=== PATIENT | female | born 1935 | race Caucasian/White ===

== ENCOUNTER → 2017-12-15 | Outpatient (CLI) | payer MEDICARE ==
--- NOTE | 2017-12-15 16:54 | US ---
Exam: Bilateral lower extremity arterial Doppler sonogram CLINICAL HISTORY: Peripheral vascular disease TECHNIQUE: Doppler sonographic evaluation of the bilateral lower extremities was performed. FINDINGS: Right Submitted sonographic images reveal calcified plaque in the right common femoral artery and in the proximal superficial femoral artery. Calcified plaque of moderate degree is seen throughout the length of the superficial femoral artery as well as in the popliteal artery. Positive arterial flow below the right knee. The following peak systolic flow flow velocity measurements were obtained: Common femoral artery velocity equals 80 centimeters per second , triphasic. Superficial femoral artery velocity equals 83-176 centimeters per second , triphasic proximally, biphasic in the mid right superficial femoral artery and monophasic distally. Highest velocity is in the proximal to mid superficial femoral artery is consistent with significant stenosis. Popliteal artery velocity equals 94 centimeters per second , triphasic. Peroneal artery velocity equals 22 centimeters per second , monophasic. Posterior tibial artery velocity equals 91 centimeters per second , monophasic. Dorsalis pedis artery velocity equals 9.3 centimeters per second , monophasic. Left Submitted sonographic images reveal arteriosclerotic plaque in the left common femoral artery and left superficial femoral artery with positive flow in the proximal left profunda femoral artery. Elevated flow velocity in the mid superficial femoral artery is consistent with moderate stenosis. There is positive color flow in the left popliteal artery with positive plaque. Positive flow is seen in the arteries below the left knee. The following peak systolic flow flow velocity measurements were obtained: Common femoral artery velocity equals 111 centimeters per second , biphasic. Superficial femoral artery velocity equals 102-134 centimeters per second , biphasic. Highest velocity in the mid left superficial femoral artery is consistent with moderate stenosis. Popliteal artery velocity equals 96 centimeters per second , biphasic. Peroneal artery velocity equals 60 centimeters per second , biphasic. Posterior tibial artery velocity equals 63 centimeters per second , monophasic. Dorsalis pedis artery velocity equals 10.9 centimeters per second , monophasic. 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 Monophasic flow in the right peroneal artery, bilateral posterior tibial arteries and bilateral dorsalis pedis arteries. Electronically signed by: Lee Montalvo MD 12/15/2017 4:52 PM CDT
--- NOTE | 2017-12-15 16:58 | US ---
EXAM DESCRIPTION: Carotid Duplex CLINICAL HISTORY: CAROTID BRUIT COMPARISON: None Available. TECHNIQUE: Carotid Doppler ultrasound FINDINGS: Right Submitted images show soft plaque in the common carotid, internal carotid or external carotid arteries. Calcified plaque in the upper right CCA and right carotid bulb. Axial images through the bulb show 62% luminal area narrowing. Axial images through the proximal right ICA above the bulb shows 69% luminal area narrowing. The following flow velocities were obtained: Common carotid artery peak systolic flow velocity measures 95 cm/s. Internal carotid artery peak systolic flow velocity measures 88 cm/s. The right internal carotid to common carotid peak systolic flow velocity ratio of 0.9 is normal. External carotid artery peak systolic flow velocity measures 77 cm/s. Flow in the right vertebral artery is antegrade. Left Submitted images show normal caliber of the left common carotid, internal carotid and external carotid arteries with no significant stenosis. Calcified plaque is seen at the left carotid bulb. The following flow velocities were obtained: Common carotid artery peak systolic flow velocity measures 83 cm/s. Internal carotid artery peak systolic flow velocity measures 66 cm/s. External carotid artery peak systolic flow velocity measures 70 cm/s. Flow in the left vertebral artery is antegrade. IMPRESSION: Transverse images suggest 62% area stenosis of the right carotid bulb and 69% area stenosis of the proximal right ICA. However the associated flow velocities are not significantly elevated. See above. No significant stenosis of the left common carotid or internal carotid artery. Antegrade flow in the vertebral arteries. Electronically signed by: Lee Montalvo MD 12/15/2017 4:56 PM CDT
--- NOTE | 2017-12-15 17:03 | US ---
EXAM DESCRIPTION: Soft Tissue,Head/Neck CLINICAL HISTORY: 82 years, Female, THYROID NODULE COMPARISON: Carotid Doppler sonogram December 15, 2017 FINDINGS: Thyroid ultrasound demonstrates a multinodular gland with underlying glandular parenchymal echogenicity within normal limits. No anterior cervical adenopathy. The right lobe measures 4.7 x 1.9 x 1.8 cm. The left lobe measures 4.6 x 1.6 x 1.7 cm. Right In the right thyroid lobe, a dominant nodule measures 2 x 1.6 x 1.5 cm slightly hypoechoic relative to the remainder the gland with a subtle peripheral hypoechoic halo. Fine-needle aspiration biopsy is recommended for a nodule of this size if not previously performed. Other smaller nodules in the right thyroid lobe are also present. In the inferior right lobe a small hypoechoic nodule measures 6 mm in greatest dimension. This can be followed. Color Doppler imaging shows positive color flow within the right thyroid nodule, slightly hypervascular compared to the adjacent thyroid parenchyma. The isthmus measures 3.4 mm in thickness. Left Inhomogeneous left thyroid lobe is seen. An ill-defined nodule in the lower left thyroid lobe measures 1.5 x 1.4 x 1.2 cm. There are questionable tiny internal calcifications. Fine-needle aspiration biopsy of this nodule is recommended if not previously performed. Other very small subtle nodules in left thyroid lobe are present. IMPRESSION: Dominant nodule in the right thyroid lobe measures 2 cm in greatest dimension. Further evaluation is recommended as discussed above. Largest nodule in the inferior left thyroid lobe is somewhat ill-defined but measures 1.5 cm in greatest dimension with question of tiny internal calcifications. Additional evaluation of this nodule is also recommended as discussed above. Electronically signed by: Lee Montalvo MD 12/15/2017 5:01 PM CDT
== END ==
LOC: US 09:22
PROVIDERS: ATTEND Family Medicine
DX: I65.23 Occlusion and stenosis of bilateral carotid arteries (principal); I73.9 Peripheral vascular disease, unspecified; E04.9 Nontoxic goiter, unspecified

== ENCOUNTER 2020-07-01 10:58 | Emergency (ER) | payer MEDICARE, OTHER ==
[2020-07-01 11:14] VITALS: TEMP 97.9
[2020-07-01] MEDS ORDERED: GLUCAGON INJ 1 MG VIAL IV ONE (11:15)
--- NOTE | 2020-07-01 11:17 | ED.PDOC ---
History of Present Illness - General Chief Complaint: Respiratory Problem Stated Complaint: SOB, chest pain Time Seen by Provider: 07/01/20 11:03 Source: patient, RN notes reviewed, Vital Signs reviewed Exam Limitations: no limitations - History of Present Illness Initial Comments: Patient is an 85-year-old female who presents the ED for 15-minute history of chest pain and feeling short of breath that began while eating a cinnamon roll. States she took a bite and feels at the cinamon roll got lodged in her chest and did not pass. She has been unable to swallow and has been spitting out all oral secretions. Denies fever, chills or any recent illnesses. Denies any cardiac history or any history of previous esophageal foreign bodies. Allergies/Adverse Reactions: Allergies Morphine Allergy (Verified 07/01/20 11:14) Review of Systems - Review of Systems Constitutional: Denies: chills, fever EENTM: States: other - Unable to swallow. Denies: ear pain, nose congestion Respiratory: States: short of breath. Denies: cough Cardiology: States: chest pain. Denies: edema, palpitations, syncope Gastrointestinal/Abdominal: Denies: abdominal pain, nausea Genitourinary: States: no symptoms reported Musculoskeletal: Denies: back pain, neck pain Skin: Denies: rash All other Systems: Reviewed and Negative Family Medical History - Family History Mother Family History: Unknown Physical Exam - Physical Exam General Appearance: Alert, Other - seated in bed spitting oral secretions into emesis bag Ears, Nose, Throat: other - No oropharyngeal erythema, edema or FB Neck: full range of motion, supple Respiratory: chest non-tender, lungs clear, normal breath sounds, no respiratory distress Cardiovascular/Chest: regular rate, rhythm, no edema Gastrointestinal/Abdominal: non tender, soft, no pulsatile mass Extremity: non-tender, normal inspection Neurologic: no motor/sensory deficits, alert, normal mood/affect Skin Exam: warm/dry Progress - Progress Progress: 07/01/20 11:20 Patient states she was eating a cinnamon roll and feels that it got stuck in her esophagus. She is unable to swallow oral secretions well water at this time. We will plan to give IV glucagon and observe in ED for passage of esophageal foreign body as well as rule out ACS, pneumonia, pneumothorax with labs and imaging. 07/01/20 12:20 Following Glucagon, patient felt esophageal foreign body has passed and all her symptoms resolved. She is drinking water without pain or difficulty. I have discussed with patient labs, imaging and vital signs and she is requesting to go home. I have discussed that she will need to follow-up with a GI doctor for endoscopy for further evaluation of possible stricture versus mass that could have caused her symptoms today. She will be on liquid/soft diet until seen by GI. She agrees with plan of care. - Results/Orders Results/Orders: CHEST XRAY XAM DESCRIPTION: Chest x-ray,1 View CLINICAL HISTORY: 85 years Female, chest pain COMPARISON: Previous study May 06, 2009 TECHNIQUE: AP portable chest. FINDINGS: Heart size is normal with normal pulmonary vascularity. No consolidating infiltrate. No pulmonary mass or worrisome nodule. No pneumothorax or pleural effusion. Bones are unremarkable. IMPRESSION: No acute process is identified in the chest. 07/01/20 11:14 IV:Start .ONCE 07/01/20 11:15 EKG .ONCE Laboratory Results - last 24 hr 07/01/20 07/01/20 07/01/20 11:10 11:10 11:10 WBC 8.7 RBC 4.98 Hgb 16.1 H Hct 45.2 MCV 90.7 MCH 32.2 H MCHC 35.5 RDW 12.2 Plt Count 304 MPV 8.4 Absolute Neuts (auto) 4.10 Absolute Lymphs (auto) 3.50 H Absolute Monos (auto) 0.70 Absolute Eos (auto) 0.30 Absolute Basos (auto) 0.10 Neutrophils % 47.0 Lymphocytes % 40.3 Monocytes % 7.7 Eosinophils % 3.4 Basophils % 1.6 Sodium 139 Potassium 3.7 Chloride 100 L Carbon Dioxide 27 Anion Gap 15.7 BUN 11 Creatinine 0.72 BUN/Creatinine Ratio 15.3 Random Glucose 194 H Serum Osmolality 282.2 Calcium 9.2 Total Bilirubin 0.8 AST 37 ALT 30 Alkaline Phosphatase 99 Troponin I < 0.02 B-Natriuretic Peptide 38.7 Serum Total Protein 8.0 Albumin 4.5 Globulin 3.5 Albumin/Globulin Ratio 1.3 Departure - Departure Clinical Impression: Atypical chest pain Esophageal foreign body Qualifiers: Encounter type: initial encounter Qualified Code(s): T18.108A - Unspecified foreign body in esophagus causing other injury, initial encounter Time of Disposition: 12:23 Disposition: Discharge to Home or Self Care Condition: Good Departure Forms: ED Discharge - Pt. Copy, Patient Portal Self Enrollment Activity: increase activity as tolerated Referrals: Sander Saldana MD [Primary Care Provider] - 1-2 Weeks Additional Instructions: You had a piece of food stuck in your esophagus causing your symptoms. you will need to stay on a soft diet until you can be seen by a GI doctor for further evaluation.
--- NOTE | 2020-07-01 11:32 | RAD ---
EXAM DESCRIPTION: Chest x-ray,1 View CLINICAL HISTORY: 85 years Female, chest pain COMPARISON: Previous study May 06, 2009 TECHNIQUE: AP portable chest. FINDINGS: Heart size is normal with normal pulmonary vascularity. No consolidating infiltrate. No pulmonary mass or worrisome nodule. No pneumothorax or pleural effusion. Bones are unremarkable. IMPRESSION: No acute process is identified in the chest. Electronically signed by: Lee Montalvo MD 07/01/2020 11:30 AM CDT
[2020-07-01 12:32] VITALS: BP 145/72; O2SAT 96
== END 2020-07-01 12:31 | disposition home or self-care (01) ==
LOC: ER 10:58
DX: T18.128A Food in esophagus causing other injury, initial encounter (principal); R07.89 Other chest pain; Z88.5 Allergy status to narcotic agent
CPT/HCPCS: 36415; 71045; 80053; 83880; 84484; 85025; 93005; J1610

== ENCOUNTER → 2020-09-26 | Outpatient (CLI) | payer MEDICARE, OTHER | LOC: NC 09:28 | PROVIDERS: ATTEND Family Medicine | DX: I10 Essential (primary) hypertension (principal); E78.2 Mixed hyperlipidemia ==